=== PATIENT | female | born 1945 | race American Indian/Alaskan Native ===

== ENCOUNTER 2018-05-18 08:10 | Day surgery (SDC) | payer MEDICARE ==
[2018-05-13 12:13] VITALS: BMI 25.7
[2018-05-18] MEDS ORDERED: Midazolam 2 MG/2 ML VIAL ONE (09:37)
--- NOTE | 2018-05-18 09:49 | CP.SDSHP ---
Same Day Surgery H & P - History Proposed Procedure: US guided aspiration left renal cyst Pre-Op Diagnosis: left renal cyst - Allergies Allergies: Allergies clindamycin Allergy (Severe, Verified 05/13/18 12:14) ANAPHYLAXIS Iodinated Contrast- Oral and IV Dye Allergy (Severe, Verified 05/13/18 12:13) ANAPHYLAXIS - Physical Exam General Appearance: Appears well Vital Signs: Vital Signs 05/18/18 08:33 Temperature 97.4 F L Pulse Rate 71 Respiratory 20 Rate Blood Pressure 127/51 L O2 Sat by Pulse 100 Oximetry - Impression Impression: Pt with 8 cm left renal cyst. Plan US guided aspiration. Will plan sclerosis if cyst reoccurs. Pt. Evaluated Today:Candidate for Anesthesia & Procedure: No (ASA 2 Malampati 2 ) - Date & Time Date: 05/18/18 Time: 09:15 Short Stay Discharge - Short Stay Discharge Admitting Diagnosis/Reason for Visit: DX: L RENAL CYST Disposition: HOME/ ROUTINE
--- NOTE | 2018-05-18 09:51 | PCM.SURG1 ---
Surgeon's Initial Post Op Note - Surgeon's Notes Surgeon: Donnie Regalado MD Pattern Molder: NONE Type of Anesthesia: IV Sedation Pre-Operative Diagnosis: Left renal cyst Operative Findings: US showed a simple 8 cm left renal cyst. Post-Operative Diagnosis: Left renal cyst Operation Performed: US guided left renal cyst aspiration Specimen/Specimens Removed: 300 cc of clear yellow fluid Estimated Blood Loss: EBL {In ML}: 0 Blood Products Given: N/A Drains Used: No Drains Post-Op Condition: Good Date of Surgery/Procedure: 05/18/18 Time of Surgery/Procedure: 09:45
--- NOTE | 2018-05-18 10:36 | US ---
PROCEDURE: Date of procedure: 05/18/2018 Procedure: Ultrasound-guided aspiration of right renal cyst Medications: 8cc 1 percent, patient received MAC anesthesia along with physiologic monitoring by anesthesiologist. HISTORY: abdominal pain and a 9 centimeter right renal cyst TECHNIQUE: Following informed consent, patient placed supine and ultrasound confirm the presence 9 centimeter simple cyst right kidney. The patient's back was prepped and draped in the usual sterile fashion. After the skin was anesthetized with lidocaine, a Core Competence catheter was advanced under ultrasound guidance into this cyst. 300 Cubic centimeters of clear fluid was removed. Post drainage ultrasound showed decrease in size of the cyst. IMPRESSION: Ultrasound guided aspiration of the right renal cyst.
[2018-05-18 12:11] VITALS: BP 125/75; PULSE 75; RESP 19; TEMP 97.9; O2SAT 99
== END 2018-05-18 12:18 | disposition home or self-care (01) ==
LOC: C.SPRAD 08:10
PROVIDERS: ATTEND Radiology Vascular & Interventional Radiology
DX: N28.1 Cyst of kidney, acquired (principal)
CPT/HCPCS: 50390; 82948; 88104; 88305; J2250; J3010